=== PATIENT | female | born 1960 | race Caucasian/White ===

== ENCOUNTER 2017-12-06 19:33 | Emergency (ER) | payer OTHER ==
[~2017-12-06] VITALS: Ht 157.5 cm; Wt 45.4 kg
[~2017-12-06 19:33] MED LIST: Cyclobenzaprine5 MG PO; Motrin800 MG PO; OXYACE5T PO; PROM25 PO; RXOXYACE PO
[2017-12-06 20:00] LABS: BASOPHILS ABSOLUTE AUTO 0.04 K/mm3 (0.00-0.23); BASOPHILS PERCENT AUTO 1 % (0-2); EOSINOPHILS PERCENT AUTO 0 % (0-6); Hemoglobin 15.6 g/dL (11.5-16.0); IMMATURE GRAN ABSOLUTE AUTO 0.01 K/mm3 (0.00-0.10); IMMATURE GRAN PERCENT AUTO 0 % (0-1); LYMPHOCYTES ABSOLUTE AUTO 1.92 K/mm3 (0.84-5.20); LYMPHOCYTES PERCENT AUTO 29 % (21-46); MONOCYTES ABSOLUTE AUTO 1.06 K/mm3 (0.16-1.47); MONOCYTES PERCENT AUTO 16 % (4-13); Mean Corpuscular HGB Conc 33.9 g/dL (31.5-36.5); Mean Corpuscular Volume 91 fL (80-100); Mean Platelet Volume 11.4 fL (9.1-12.4); NEUTROPHILS ABSOLUTE AUTO 3.63 K/mm3 (1.96-9.15); NEUTROPHILS PERCENT AUTO 55 % (41-73); Platelet Count 80 K/mm3 (150-400); RDW Coefficient Variation 12.6 % (11.7-14.2); RDW Standard Deviation 42.2 fL (35.1-46.3); Red Blood Cell Count 5.04 M/mm3 (3.80-5.20); White Blood Cell Count 6.66 K/mm3 (4.00-11.30)
[2017-12-06 20:07] LABS: Influenza A Negative (NEGATIVE); Influenza B Positive (NEGATIVE)
[2017-12-06] MEDS ORDERED: CONEST.9 PO (20:09)
[2017-12-06 20:22] LABS: Alanine Aminotransfer (ALT/SGP 22 U/L (12-78); Albumin, Blood 3.8 g/dL (3.4-5.0); Albumin/Globulin Ratio 1.1 (0.8-1.8); Alk Phos 58 U/L (50-136); Anion Gap 11 mmol/L (6-16); Aspartate Aminotrans (AST/SGOT 38 U/L (12-37); Bilirubin, Total 0.4 mg/dL (0.1-1.0); Blood Urea Nitrogen 12 mg/dL (8-24); CO2, Blood 25 mmol/L (21-32); Calcium, Blood 8.9 mg/dL (8.5-10.1); Chloride, Blood 96 mmol/L (98-108); Creatinine, Blood 0.86 mg/dL (0.40-1.00); Globulin, Blood 3.5 g/dL (2.2-4.0); Glomerular Filtration Rate >60 (60-); Glucose, Blood 94 mg/dL (70-99); Potassium, Blood 3.7 mmol/L (3.5-5.5); Sodium, Blood 132 mmol/L (136-145); Total Protein, Blood 7.3 g/dL (6.4-8.2); Troponin I <0.015 ng/mL (0.000-0.040)
== END 2017-12-06 22:14 | disposition home or self-care (01) ==
LOC: ER 19:33
PROVIDERS: Emergency Medicine
DX: J10.1 Influenza due to other identified influenza virus with other respiratory manifestations (principal); R55 Syncope and collapse; F17.200 Nicotine dependence, unspecified, uncomplicated; Z79.899 Other long term (current) drug therapy; Z90.710 Acquired absence of both cervix and uterus; Z90.89 Acquired absence of other organs
CPT/HCPCS: 71046; 80053; 84484; 85025; 87804; 93005; 93010; 96361; 96374; 99283; J2405; J7030

== ENCOUNTER 2019-02-02 10:44 | Day surgery (SDC) | payer OTHER ==
[~2019-02-02 10:44] MED LIST changes: +CONEST.9 PO
--- NOTE | 2019-02-02 11:29 | NUR ---
02/02/19 1129 Taran Ribera History, Chart, Medications and Allergies reviewed before start of procedure.MONITOR INTACT WITH CONTINUOUS PULSE OXIMETRY AND INTERMITTENT BP.3-LEAD EKG REVIEWED WITH PHYSICIAN PRIOR TO START OF PROCEDURE.O2 VIA N/C INTACT THROUGHOUT SEDATION/PROCEDURE. Patient confirms NPO status and agrees with scheduled surgery.PATIENT DETERMINED TO BE ASA APPROPRIATE FOR PROPOFOL SEDATION PRIOR TO START OF PROCEDURE BY DR. GREER.
--- NOTE | 2019-02-02 14:37 | NUR ---
Discharge instructions reviewed with patient. Patient verbalizes understanding. Copy given to patient to take home. PATINET ABLE TO SM\WALLOW, GAG REFLEX INTACT. NO SOB OR DIS\FFICULTY BREATHING. Discharged via wheelchair to private car for ride home.
== END 2019-02-02 14:30 | disposition home or self-care (01) ==
LOC: ORSCMMR 10:44 → ORD 11:30 → ORSCMMR 14:30
PROVIDERS: Internal Medicine Critical Care Medicine
PROC: 0BB68ZX Excision of Right Lower Lobe Bronchus, Via Natural or Artificial Opening Endoscopic, Diagnostic (ICD-10-PCS; principal; 2019-02-02 11:30)
DX: R91.8 Other nonspecific abnormal finding of lung field (principal); C34.00 Malignant neoplasm of unspecified main bronchus; F17.210 Nicotine dependence, cigarettes, uncomplicated; R04.2 Hemoptysis; R06.02 Shortness of breath; J43.9 Emphysema, unspecified
CPT/HCPCS: 88305; J2250; J7120

== ENCOUNTER → 2019-04-02 | Outpatient (CLI) | payer OTHER ==
[2019-04-02 17:17] LABS: BASOPHILS ABSOLUTE AUTO 0.06 K/mm3 (0.00-0.23); BASOPHILS PERCENT AUTO 1 % (0-2); EOSINOPHILS ABSOLUTE AUTO 0.21 K/mm3 (0.00-0.68); EOSINOPHILS PERCENT AUTO 3 % (0-6); Hematocrit 43.8 % (33.0-51.0); Hemoglobin 14.8 g/dL (11.5-16.0); IMMATURE GRAN ABSOLUTE AUTO 0.01 K/mm3 (0.00-0.10); IMMATURE GRAN PERCENT AUTO 0 % (0-1); LYMPHOCYTES ABSOLUTE AUTO 2.29 K/mm3 (0.84-5.20); LYMPHOCYTES PERCENT AUTO 33 % (21-46); MONOCYTES ABSOLUTE AUTO 0.77 K/mm3 (0.16-1.47); MONOCYTES PERCENT AUTO 11 % (4-13); Mean Corpuscular HGB 32.1 pg (26.0-34.0); Mean Corpuscular HGB Conc 33.8 g/dL (31.5-36.5); Mean Corpuscular Volume 95 fL (80-100); Mean Platelet Volume 10.3 fL (9.1-12.4); NEUTROPHILS ABSOLUTE AUTO 3.52 K/mm3 (1.96-9.15); NEUTROPHILS PERCENT AUTO 51 % (41-73); Platelet Count 209 K/mm3 (150-400); RDW Coefficient Variation 12.8 % (11.7-14.2); RDW Standard Deviation 44.9 fL (35.1-46.3); Red Blood Cell Count 4.61 M/mm3 (3.80-5.20); White Blood Cell Count 6.86 K/mm3 (4.00-11.30)
[2019-04-02 17:26] LABS: Alanine Aminotransfer (ALT/SGP 18 U/L (12-78); Albumin, Blood 3.8 g/dL (3.4-5.0); Albumin/Globulin Ratio 1.1 (0.8-1.8); Alk Phos 80 U/L (40-126); Anion Gap 5 mmol/L (6-16); Aspartate Aminotrans (AST/SGOT 20 U/L (12-37); Bilirubin, Total 0.4 mg/dL (0.1-1.0); Blood Urea Nitrogen 10 mg/dL (8-24); Bun/Creatinine Ratio 12.7 (12.0-20.0); CO2, Blood 31 mmol/L (21-32); CPK Creatine Kinase 93 U/L (26-192); Calcium, Blood 9.4 mg/dL (8.5-10.1); Chloride, Blood 103 mmol/L (98-108); Creatinine, Blood 0.79 mg/dL (0.40-1.00); Globulin, Blood 3.5 g/dL (2.2-4.0); Glomerular Filtration Rate >60 (60-); Glucose, Blood 83 mg/dL (70-99); Magnesium, Blood 2.1 mg/dL (1.6-2.4); Potassium, Blood 3.8 mmol/L (3.5-5.5); Sodium, Blood 139 mmol/L (136-145); Total Protein, Blood 7.3 g/dL (6.4-8.2)
== END | disposition home or self-care (01) ==
LOC: LAB EV 17:07 → LAB SHORT 17:07
PROVIDERS: Internal Medicine
DX: R25.2 Cramp and spasm (principal)
CPT/HCPCS: 80053; 82550; 83735; 85025

== ENCOUNTER 2019-04-15 08:11 | Day surgery (SDC) | payer OTHER ==
[~2019-04-15] VITALS: Ht 157.5 cm; Wt 44.3 kg
[~2019-04-15 08:11] MED LIST changes: +ALBU90OI; +ANORO ELLIPTA1 EACH INH; +DIAZ5 PO; +ESTMED PO
--- NOTE | 2019-04-15 08:43 | NUR ---
History, Chart, Medications and Allergies reviewed before start of procedure. Patient confirms NPO status and agrees with scheduled surgery. Lungs clear T/O to Auscultation. Patient reports completing Chlorhexadine shower X2 prior to admission to hospital. Pre-Op teaching done. Pt verbalizes understanding. Patient States Post-Procedure ride home has been arranged.
--- NOTE | 2019-04-15 09:47 | NUR ---
CHILD & ADOLESCENT PSYCHIATRIST REPORT AT BEDSIDE WITH SHAMA SHEPHERD RN.
--- NOTE | 2019-04-15 10:55 | NUR ---
1055- MEDIPORT PLACEMENT GOOD PER DR. KELLEY
--- NOTE | 2019-04-15 12:09 | NUR ---
Discharge instructions reviewed with patient. Patient verbalizes understanding. Copy given to patient to take home. DRG C/D/I R CHEST. TOLERATED PO WELL. Discharged via wheelchair to private car for ride home.
== END 2019-04-15 23:16 | disposition home or self-care (01) ==
LOC: ORSCMMR 08:11 → ORD 09:30 → ORSCMMR 09:30
PROVIDERS: Surgery
PROC: 05H533Z Insertion of Infusion Device into Right Subclavian Vein, Percutaneous Approach (ICD-10-PCS; principal; 2019-04-15 09:30)
PROC: B5161ZA Fluoroscopy of Right Subclavian Vein using Low Osmolar Contrast, Guidance (ICD-10-PCS; principal; 2019-04-15 09:30)
DX: C34.90 Malignant neoplasm of unspecified part of unspecified bronchus or lung (principal); J44.9 Chronic obstructive pulmonary disease, unspecified; F17.210 Nicotine dependence, cigarettes, uncomplicated; Z79.899 Other long term (current) drug therapy
CPT/HCPCS: 77001; A9270-GY; C1788; J0690; J1642; J2250; J2704; J3010; J7120

== ENCOUNTER → 2019-05-24 | Outpatient (CLI) | payer OTHER ==
[2019-05-24 12:03] LABS: BASOPHILS ABSOLUTE AUTO 0.08 K/mm3 (0.00-0.23); BASOPHILS PERCENT AUTO 1 % (0-2); EOSINOPHILS ABSOLUTE AUTO 0.03 K/mm3 (0.00-0.68); EOSINOPHILS PERCENT AUTO 1 % (0-6); Hematocrit 38.6 % (33.0-51.0); Hemoglobin 12.8 g/dL (11.5-16.0); IMMATURE GRAN ABSOLUTE AUTO 0.08 K/mm3 (0.00-0.10); IMMATURE GRAN PERCENT AUTO 1 % (0-1); LYMPHOCYTES ABSOLUTE AUTO 0.62 K/mm3 (0.84-5.20); LYMPHOCYTES PERCENT AUTO 11 % (21-46); MONOCYTES PERCENT AUTO 3 % (4-13); Mean Corpuscular HGB 31.4 pg (26.0-34.0); Mean Corpuscular HGB Conc 33.2 g/dL (31.5-36.5); Mean Corpuscular Volume 95 fL (80-100); NEUTROPHILS ABSOLUTE AUTO 4.83 K/mm3 (1.96-9.15); NEUTROPHILS PERCENT AUTO 83 % (41-73); Platelet Count 148 K/mm3 (150-400); RDW Coefficient Variation 12.5 % (11.7-14.2); RDW Standard Deviation 43.2 fL (35.1-46.3); Red Blood Cell Count 4.08 M/mm3 (3.80-5.20); White Blood Cell Count 5.84 K/mm3 (4.00-11.30)
[2019-05-24 12:14] LABS: Alanine Aminotransfer (ALT/SGP 16 U/L (12-78); Albumin, Blood 3.8 g/dL (3.4-5.0); Albumin/Globulin Ratio 1.2 (0.8-1.8); Alk Phos 79 U/L (50-136); Anion Gap 6 mmol/L (6-16); Aspartate Aminotrans (AST/SGOT 15 U/L (12-37); Bilirubin, Total 0.4 mg/dL (0.1-1.0); Blood Urea Nitrogen 8 mg/dL (8-24); Bun/Creatinine Ratio 13.4 (12.0-20.0); CO2, Blood 27 mmol/L (21-32); Calcium, Blood 9.6 mg/dL (8.5-10.1); Chloride, Blood 104 mmol/L (98-108); Globulin, Blood 3.3 g/dL (2.2-4.0); Glomerular Filtration Rate >60 (60-); Glucose, Blood 85 mg/dL (70-99); Potassium, Blood 4.1 mmol/L (3.5-5.5); Sodium, Blood 137 mmol/L (136-145); Total Protein, Blood 7.1 g/dL (6.4-8.2)
== END | disposition home or self-care (01) ==
LOC: LAB 11:23 → LAB SHORT 11:23
PROVIDERS: Registered Nurse Oncology
DX: C34.90 Malignant neoplasm of unspecified part of unspecified bronchus or lung (principal)
CPT/HCPCS: 80053; 85025

== ENCOUNTER → 2020-03-28 | Outpatient (CLI) | payer OTHER ==
[~2020-03-28] MED LIST changes: +IMFINZI500 MG/10 IV
== END | disposition home or self-care (01) ==
LOC: LAB 13:30 → LAB SHORT 13:30
DX: C34.90 Malignant neoplasm of unspecified part of unspecified bronchus or lung (principal); R06.00 Dyspnea, unspecified; R05 Cough
CPT/HCPCS: 85379

== ENCOUNTER 2020-05-06 16:45 | Emergency (ER) | payer OTHER ==
[~2020-05-06] VITALS: Ht 157.5 cm; Wt 41.7 kg
[2020-05-06] MEDS ORDERED: ALPRAZOLAM0.5 M1 PO (17:47)
[2020-05-06 17:50] LABS: BASOPHILS ABSOLUTE AUTO 0.05 K/mm3 (0.00-0.23); BASOPHILS PERCENT AUTO 1 % (0-2); EOSINOPHILS ABSOLUTE AUTO 0.12 K/mm3 (0.00-0.68); EOSINOPHILS PERCENT AUTO 2 % (0-6); Hematocrit 43.7 % (33.0-51.0); Hemoglobin 14.6 g/dL (11.5-16.0); IMMATURE GRAN ABSOLUTE AUTO 0.01 K/mm3 (0.00-0.10); IMMATURE GRAN PERCENT AUTO 0 % (0-1); LYMPHOCYTES ABSOLUTE AUTO 1.06 K/mm3 (0.84-5.20); LYMPHOCYTES PERCENT AUTO 14 % (21-46); MONOCYTES ABSOLUTE AUTO 0.88 K/mm3 (0.16-1.47); MONOCYTES PERCENT AUTO 11 % (4-13); Mean Corpuscular HGB Conc 33.4 g/dL (31.5-36.5); Mean Corpuscular Volume 96 fL (80-100); Mean Platelet Volume 9.3 fL (9.1-12.4); NEUTROPHILS ABSOLUTE AUTO 5.72 K/mm3 (1.96-9.15); NEUTROPHILS PERCENT AUTO 73 % (41-73); Platelet Count 212 K/mm3 (150-400); RDW Coefficient Variation 12.3 % (11.7-14.2); RDW Standard Deviation 43.7 fL (35.1-46.3); Red Blood Cell Count 4.56 M/mm3 (3.80-5.20); White Blood Cell Count 7.84 K/mm3 (4.00-11.30)
[2020-05-06 18:06] LABS: Alanine Aminotransfer (ALT/SGP 16 U/L (12-78); Albumin, Blood 3.9 g/dL (3.4-5.0); Alk Phos 76 U/L (50-136); Anion Gap 8 mmol/L (6-16); Aspartate Aminotrans (AST/SGOT 23 U/L (12-37); Bilirubin, Total 0.4 mg/dL (0.1-1.0); Blood Urea Nitrogen 8 mg/dL (8-24); Bun/Creatinine Ratio 12.8 (12.0-20.0); CO2, Blood 25 mmol/L (21-32); Calcium, Blood 9.4 mg/dL (8.5-10.1); Chloride, Blood 98 mmol/L (98-108); Creatinine, Blood 0.63 mg/dL (0.40-1.00); Globulin, Blood 3.8 g/dL (2.2-4.0); Glomerular Filtration Rate >60 (60-); Glucose, Blood 100 mg/dL (70-99); Potassium, Blood 3.7 mmol/L (3.5-5.5); Sodium, Blood 131 mmol/L (136-145); Total Protein, Blood 7.7 g/dL (6.4-8.2)
== END 2020-05-06 21:35 | disposition home or self-care (01) ==
LOC: ER 16:45
PROVIDERS: Student in an Organized Health Care Education/Training Program
DX: R07.9 Chest pain, unspecified (principal); I25.2 Old myocardial infarction; F41.9 Anxiety disorder, unspecified; Z86.73 Personal history of transient ischemic attack (TIA), and cerebral infarction without residual deficits; F17.200 Nicotine dependence, unspecified, uncomplicated; Z85.118 Personal history of other malignant neoplasm of bronchus and lung; Z79.899 Other long term (current) drug therapy
CPT/HCPCS: 71046; 71260; 80053; 83690; 85025; 93005; 93010; 96374; 99285-25; J1885; Q9967

== ENCOUNTER 2021-10-22 15:41 | Emergency (ER) | payer MEDICARE, OTHER ==
[~2021-10-22] VITALS: Ht 157.5 cm; Wt 45.4 kg
[~2021-10-22 15:41] MED LIST changes: +ALPRAZOLAM0.5 M1 PO
[2021-10-22 16:29] LABS: BASOPHILS ABSOLUTE AUTO 0.06 K/mm3 (0.00-0.23); BASOPHILS PERCENT AUTO 2 % (0-2); EOSINOPHILS ABSOLUTE AUTO 0.06 K/mm3 (0.00-0.68); EOSINOPHILS PERCENT AUTO 2 % (0-6); Hematocrit 36.5 % (33.0-51.0); Hemoglobin 12.1 g/dL (11.5-16.0); IMMATURE GRAN ABSOLUTE AUTO 0.02 K/mm3 (0.00-0.10); IMMATURE GRAN PERCENT AUTO 1 % (0-1); LYMPHOCYTES ABSOLUTE AUTO 0.85 K/mm3 (0.84-5.20); LYMPHOCYTES PERCENT AUTO 25 % (21-46); MONOCYTES ABSOLUTE AUTO 0.31 K/mm3 (0.16-1.47); MONOCYTES PERCENT AUTO 9 % (4-13); Mean Corpuscular HGB 31.5 pg (26.0-34.0); Mean Corpuscular HGB Conc 33.2 g/dL (31.5-36.5); Mean Corpuscular Volume 95 fL (80-100); Mean Platelet Volume 10.1 fL (9.1-12.4); NEUTROPHILS ABSOLUTE AUTO 2.16 K/mm3 (1.96-9.15); NEUTROPHILS PERCENT AUTO 62 % (41-73); Platelet Count 53 K/mm3 (150-400); RDW Coefficient Variation 14.3 % (11.7-14.2); RDW Standard Deviation 49.9 fL (35.1-46.3); Red Blood Cell Count 3.84 M/mm3 (3.80-5.20); White Blood Cell Count 3.46 K/mm3 (4.00-11.30)
[2021-10-22 17:33] LABS: Alanine Aminotransfer (ALT/SGP 7 U/L (12-78); Albumin, Blood 2.5 g/dL (3.4-5.0); Albumin/Globulin Ratio 0.8 (0.8-1.8); Alk Phos 67 U/L (50-136); Anion Gap 9 mmol/L (6-16); Aspartate Aminotrans (AST/SGOT 14 U/L (12-37); Bilirubin, Total 0.5 mg/dL (0.1-1.0); Blood Urea Nitrogen 13 mg/dL (8-24); Bun/Creatinine Ratio 18.6 (12.0-20.0); CO2, Blood 27 mmol/L (21-32); Calcium, Blood 9.1 mg/dL (8.5-10.1); Chloride, Blood 100 mmol/L (98-108); Globulin, Blood 3.2 g/dL (2.2-4.0); Glomerular Filtration Rate >60 (60-); Glucose, Blood 124 mg/dL (70-99); Potassium, Blood 4.2 mmol/L (3.5-5.5); Sodium, Blood 136 mmol/L (136-145); Total Protein, Blood 5.7 g/dL (6.4-8.2)
[2021-10-22 20:22] LABS: Source, Urine Voided
[2021-10-22 20:27] LABS: Bilirubin, Urine Neg (Neg); Blood, Urine 3+ (Neg); Glucose Qualitative, Urine Neg (Neg); Ketones, Urine Neg (Neg); Leukocyte Esterase, Urine 1+ (Neg); Nitrite, Urine Neg (Neg); Protein, Urine 2+ (Neg); Urobilinogen, Urine NORM (Normal)
[2021-10-22 20:33] LABS: Appearance, Urine Clear (Clear); Color, Urine Yellow (P-Yellow)
[2021-10-22 20:35] LABS: Amorphous Light (0-Heavy); Bacteria Few /hpf; Red Blood Cells, Urine 0-2 /hpf (0-2); Squamous Epithelial Cells Few /hpf (Few)
[2021-10-22] MEDS ORDERED: Lasix20 MG PO (20:48)
== END 2021-10-23 22:17 | disposition home or self-care (01) ==
LOC: ER 15:41
PROVIDERS: Emergency Medicine; Physician Assistant
DX: R60.0 Localized edema (principal); Z79.899 Other long term (current) drug therapy; F17.200 Nicotine dependence, unspecified, uncomplicated
CPT/HCPCS: 36415; 71045; 80053; 81001; 83880; 85025; 93005; 93010; 93970; 99284-25

== ENCOUNTER 2021-10-30 15:02 | Day surgery (SDC) | payer MEDICARE, OTHER ==
[2021-10-30 12:27] LABS: Hematocrit 28.9 % (33.0-51.0); Hemoglobin 9.7 g/dL (11.5-16.0); Mean Corpuscular HGB Conc 33.6 g/dL (31.5-36.5); Mean Corpuscular Volume 95 fL (80-100); RDW Coefficient Variation 14.5 % (11.7-14.2); RDW Standard Deviation 49.7 fL (35.1-46.3); Red Blood Cell Count 3.03 M/mm3 (3.80-5.20); White Blood Cell Count 3.18 K/mm3 (4.00-11.30)
[2021-10-30 12:38] LABS: Platelet Count 13 K/mm3 (150-400)
[2021-10-30 12:52] LABS: BAND PERCENT MAN 2 % (0-8); BASOPHILS PERCENT MAN 0 % (0-2); EOSINOPHILS PERCENT MAN 0 % (0-6); LYMPHOCYTES ABSOLUTE MAN 0.38 K/mm3 (0.84-5.20); LYMPHOCYTES PERCENT MAN 12 % (21-46); MONOCYTES ABSOLUTE MAN 0.06 K/mm3 (0.16-1.47); MONOCYTES PERCENT MAN 2 % (4-13); NEUTROPHILS ABSOLUTE MAN 2.73 K/mm3 (1.96-9.15); SEG NEUTROPHILS PERCENT MAN 84 % (41-73); TOTAL CELLS COUNTED 100
[2021-10-30 13:13] LABS: Alanine Aminotransfer (ALT/SGP 20 U/L (12-78); Albumin, Blood 2.1 g/dL (3.4-5.0); Albumin/Globulin Ratio 0.5 (0.8-1.8); Alk Phos 72 U/L (50-136); Anion Gap 6 mmol/L (6-16); Aspartate Aminotrans (AST/SGOT 27 U/L (12-37); Bilirubin, Total 0.5 mg/dL (0.1-1.0); Blood Urea Nitrogen 18 mg/dL (8-24); Bun/Creatinine Ratio 25.5 (12.0-20.0); CO2, Blood 31 mmol/L (21-32); Calcium, Blood 9.5 mg/dL (8.5-10.1); Chloride, Blood 96 mmol/L (98-108); Creatinine, Blood 0.71 mg/dL (0.40-1.00); Globulin, Blood 3.9 g/dL (2.2-4.0); Glomerular Filtration Rate >60 (60-); Glucose, Blood 88 mg/dL (70-99); Potassium, Blood 4.5 mmol/L (3.5-5.5); Sodium, Blood 133 mmol/L (136-145)
[~2021-10-30 15:02] MED LIST changes: +Lasix20 MG PO
== END 2021-10-30 17:25 | disposition home or self-care (01) ==
LOC: ATC 15:02 → LAB FUT 10-08 17:05 → EDSTATUS 10-08 17:05
PROVIDERS: Internal Medicine Hematology & Oncology
DX: C34.31 Malignant neoplasm of lower lobe, right bronchus or lung (principal); Z87.891 Personal history of nicotine dependence
CPT/HCPCS: 36415; 80053; 85025; 86900; 86901; J1642; J7050; P9035

== ENCOUNTER → 2021-12-04 | Outpatient (CLI) | payer MEDICARE, OTHER ==
[2021-12-04 15:40] LABS: BASOPHILS ABSOLUTE AUTO 0.05 K/mm3 (0.00-0.23); BASOPHILS PERCENT AUTO 1 % (0-2); EOSINOPHILS ABSOLUTE AUTO 0.14 K/mm3 (0.00-0.68); EOSINOPHILS PERCENT AUTO 3 % (0-6); Hematocrit 32.3 % (33.0-51.0); Hemoglobin 10.4 g/dL (11.5-16.0); IMMATURE GRAN ABSOLUTE AUTO 0.01 K/mm3 (0.00-0.10); IMMATURE GRAN PERCENT AUTO 0 % (0-1); LYMPHOCYTES ABSOLUTE AUTO 0.61 K/mm3 (0.84-5.20); LYMPHOCYTES PERCENT AUTO 14 % (21-46); MONOCYTES ABSOLUTE AUTO 0.84 K/mm3 (0.16-1.47); MONOCYTES PERCENT AUTO 19 % (4-13); Mean Corpuscular HGB 32.3 pg (26.0-34.0); Mean Corpuscular HGB Conc 32.2 g/dL (31.5-36.5); Mean Corpuscular Volume 100 fL (80-100); Mean Platelet Volume 10.1 fL (9.1-12.4); NEUTROPHILS ABSOLUTE AUTO 2.82 K/mm3 (1.96-9.15); NEUTROPHILS PERCENT AUTO 63 % (41-73); Platelet Count 358 K/mm3 (150-400); RDW Coefficient Variation 19.7 % (11.7-14.2); Red Blood Cell Count 3.22 M/mm3 (3.80-5.20); White Blood Cell Count 4.47 K/mm3 (4.00-11.30)
[2021-12-04 16:00] LABS: Alanine Aminotransfer (ALT/SGP 18 U/L (12-78); Albumin, Blood 2.8 g/dL (3.4-5.0); Albumin/Globulin Ratio 0.8 (0.8-1.8); Alk Phos 79 U/L (50-136); Anion Gap 6 mmol/L (6-16); Aspartate Aminotrans (AST/SGOT 27 U/L (12-37); Bilirubin, Total 0.3 mg/dL (0.1-1.0); Blood Urea Nitrogen 11 mg/dL (8-24); Bun/Creatinine Ratio 16.3 (12.0-20.0); CO2, Blood 29 mmol/L (21-32); Chloride, Blood 102 mmol/L (98-108); Creatinine, Blood 0.67 mg/dL (0.40-1.00); Globulin, Blood 3.3 g/dL (2.2-4.0); Glomerular Filtration Rate >60 (60-); Glucose, Blood 136 mg/dL (70-99); Potassium, Blood 3.9 mmol/L (3.5-5.5); Sodium, Blood 137 mmol/L (136-145); Total Protein, Blood 6.1 g/dL (6.4-8.2)
== END | disposition home or self-care (01) ==
LOC: LAB SHORT 14:00
PROVIDERS: Internal Medicine Hematology & Oncology
DX: C34.90 Malignant neoplasm of unspecified part of unspecified bronchus or lung (principal)
CPT/HCPCS: 80053; 85025

== ENCOUNTER → 2021-12-11 | Outpatient (CLI) | payer MEDICARE, OTHER ==
[2021-12-12 08:11] LABS: BASO (ABSOLUTE) 0.1 x10E3/uL (0.0-0.2); BASOS 3 % (Not Estab.); EOS 8 % (Not Estab.); EOS (ABSOLUTE) 0.2 x10E3/uL (0.0-0.4); HEMATOCRIT 31.2 % (34.0-46.6); HEMOGLOBIN 10.3 g/dL (11.1-15.9); IMMATURE GRANULOCYTES 1 % (Not Estab.); LYMPHS 23 % (Not Estab.); LYMPHS (ABSOLUTE) 0.5 x10E3/uL (0.7-3.1); MCH 31.7 pg (26.6-33.0); MCV 96 fL (79-97); MONOCYTES 9 % (Not Estab.); MONOCYTES(ABSOLUTE) 0.2 x10E3/uL (0.1-0.9); NEUTROPHILS 56 % (Not Estab.); NEUTROPHILS (ABSOLUTE) 1.2 x10E3/uL (1.4-7.0); PLATELETS 347 x10E3/uL (150-450); RBC 3.25 x10E6/uL (3.77-5.28); RDW 17.6 % (11.7-15.4)
[2021-12-12 09:11] LABS: A/G RATIO 1.5 (1.2-2.2); BILIRUBIN, TOTAL 0.2 mg/dL (0.0-1.2); CALCIUM, SERUM 9.3 mg/dL (8.7-10.3); CREATININE, SERUM 0.55 mg/dL (0.57-1.00); GLOBULIN, TOTAL 2.3 g/dL (1.5-4.5); POTASSIUM, SERUM 4.6 mmol/L (3.5-5.2); PROTEIN, TOTAL, SERUM 5.8 g/dL (6.0-8.5)
== END ==
LOC: LAB SHORT 13:50 → LAB 13:50
PROVIDERS: Hospitalist
DX: R60.0 Localized edema (principal)
CPT/HCPCS: 80053; 85025

== ENCOUNTER 2022-01-12 15:09 | Emergency (ER) | payer MEDICARE, OTHER ==
[~2022-01-12] VITALS: Ht 157.5 cm; Wt 44.0 kg
[2022-01-12] MEDS ORDERED: K-Dur10 MEQ (15:34)
[2022-01-12] MEDS ORDERED: ATENOLOL25 MG PO (15:35)
[2022-01-12 15:47] LABS: BASOPHILS ABSOLUTE AUTO 0.02 K/mm3 (0.00-0.23); BASOPHILS PERCENT AUTO 0 % (0-2); EOSINOPHILS ABSOLUTE AUTO 0.07 K/mm3 (0.00-0.68); EOSINOPHILS PERCENT AUTO 1 % (0-6); Hematocrit 39.8 % (33.0-51.0); Hemoglobin 12.8 g/dL (11.5-16.0); IMMATURE GRAN ABSOLUTE AUTO 0.04 K/mm3 (0.00-0.10); IMMATURE GRAN PERCENT AUTO 1 % (0-1); LYMPHOCYTES ABSOLUTE AUTO 0.59 K/mm3 (0.84-5.20); LYMPHOCYTES PERCENT AUTO 8 % (21-46); MONOCYTES ABSOLUTE AUTO 1.39 K/mm3 (0.16-1.47); MONOCYTES PERCENT AUTO 18 % (4-13); Mean Corpuscular HGB 32.7 pg (26.0-34.0); Mean Corpuscular HGB Conc 32.2 g/dL (31.5-36.5); Mean Corpuscular Volume 102 fL (80-100); Mean Platelet Volume 9.2 fL (9.1-12.4); NEUTROPHILS ABSOLUTE AUTO 5.58 K/mm3 (1.96-9.15); NEUTROPHILS PERCENT AUTO 73 % (41-73); NRBC ABSOLUTE 0.02 K/mm3 (0.00-0.02); NRBC Auto 0.3 /100 WBC (0.0-0.2); Platelet Count 95 K/mm3 (150-400); RDW Coefficient Variation 20.6 % (11.7-14.2); Red Blood Cell Count 3.92 M/mm3 (3.80-5.20); White Blood Cell Count 7.69 K/mm3 (4.00-11.30)
[2022-01-12 16:08] LABS: Alanine Aminotransfer (ALT/SGP 26 U/L (12-78); Albumin, Blood 3.1 g/dL (3.4-5.0); Albumin/Globulin Ratio 0.7 (0.8-1.8); Alk Phos 103 U/L (50-136); Anion Gap 6 mmol/L (6-16); Aspartate Aminotrans (AST/SGOT 29 U/L (12-37); Bilirubin, Total 0.5 mg/dL (0.1-1.0); Blood Urea Nitrogen 12 mg/dL (8-24); Bun/Creatinine Ratio 18.2 (12.0-20.0); CO2, Blood 29 mmol/L (21-32); Calcium, Blood 9.9 mg/dL (8.5-10.1); Chloride, Blood 102 mmol/L (98-108); Creatinine, Blood 0.66 mg/dL (0.40-1.00); Globulin, Blood 4.3 g/dL (2.2-4.0); Glomerular Filtration Rate >60 (60-); Glucose, Blood 105 mg/dL (70-99); Potassium, Blood 3.7 mmol/L (3.5-5.5); Sodium, Blood 137 mmol/L (136-145); Total Protein, Blood 7.4 g/dL (6.4-8.2)
[2022-01-12] MEDS ORDERED: AMOCLA875 PO (16:37)
[2022-01-12 16:53] LABS: Influenza A, PCR NEGATIVE (NEGATIVE); Influenza B, PCR NEGATIVE (NEGATIVE); Resp Syncytial Virus, PCR NEGATIVE (NEGATIVE); SARS-Cov-2 (COVID-19) PCR, MMC NEGATIVE (NEGATIVE)
== END 2022-01-12 22:45 | disposition home or self-care (01) ==
LOC: ER 15:09
PROVIDERS: Emergency Medicine; Physician Assistant
DX: J01.90 Acute sinusitis, unspecified (principal); R09.02 Hypoxemia; C34.91 Malignant neoplasm of unspecified part of right bronchus or lung; I25.2 Old myocardial infarction; F17.200 Nicotine dependence, unspecified, uncomplicated; Z20.822 Contact with and (suspected) exposure to COVID-19; Z85.118 Personal history of other malignant neoplasm of bronchus and lung; Z79.899 Other long term (current) drug therapy
CPT/HCPCS: 0241U; 36415; 71045; 71260; 80053; 85025; 93005; 93010; 96374; 99285-25; A9270; J1642; Q9967

== ENCOUNTER 2022-04-13 17:40 | Emergency (ER) | payer MEDICARE, OTHER ==
[~2022-04-13] VITALS: Ht 157.5 cm; Wt 44.9 kg
[~2022-04-13 17:40] MED LIST changes: +AMOCLA875 PO; +ATENOLOL25 MG PO; +K-Dur10 MEQ
[2022-04-13] MEDS ORDERED: ESTRADIOL1 M1 PO (19:41)
[2022-04-13] MEDS ORDERED: ANORO ELLIPTA1 EAC1 IH (19:42)
[2022-04-13] MEDS ORDERED: DILTIAZEM 24HR240 M5 PO (19:42)
[2022-04-13 19:43] LABS: BASOPHILS ABSOLUTE AUTO 0.06 K/mm3 (0.00-0.23); BASOPHILS PERCENT AUTO 2 % (0-2); EOSINOPHILS ABSOLUTE AUTO 0.07 K/mm3 (0.00-0.68); EOSINOPHILS PERCENT AUTO 2 % (0-6); Hemoglobin 11.5 g/dL (11.5-16.0); IMMATURE GRAN PERCENT AUTO 0 % (0-1); LYMPHOCYTES ABSOLUTE AUTO 0.77 K/mm3 (0.84-5.20); LYMPHOCYTES PERCENT AUTO 23 % (21-46); MONOCYTES ABSOLUTE AUTO 0.12 K/mm3 (0.16-1.47); MONOCYTES PERCENT AUTO 4 % (4-13); Mean Corpuscular HGB 29.3 pg (26.0-34.0); Mean Corpuscular HGB Conc 31.9 g/dL (31.5-36.5); Mean Corpuscular Volume 92 fL (80-100); Mean Platelet Volume 10.5 fL (9.1-12.4); NEUTROPHILS ABSOLUTE AUTO 2.38 K/mm3 (1.96-9.15); NEUTROPHILS PERCENT AUTO 70 % (41-73); Platelet Count 224 K/mm3 (150-400); RDW Coefficient Variation 15.3 % (11.7-14.2); RDW Standard Deviation 51.7 fL (35.1-46.3); Red Blood Cell Count 3.93 M/mm3 (3.80-5.20)
[2022-04-13 20:00] LABS: Albumin, Blood 3.5 g/dL (3.4-5.0); Bilirubin, Total 0.3 mg/dL (0.1-1.0); Bun/Creatinine Ratio 24.5 (12.0-20.0); Calcium, Blood 9.3 mg/dL (8.5-10.1); Creatinine, Blood 0.61 mg/dL (0.40-1.00); Globulin, Blood 3.6 g/dL (2.2-4.0); Potassium, Blood 3.9 mmol/L (3.5-5.5); Total Protein, Blood 7.1 g/dL (6.4-8.2)
[2022-04-13 20:34] LABS: Influenza A Negative (NEGATIVE); Influenza B Negative (NEGATIVE)
[2022-04-13 20:53] LABS: SARS-Cov-2 (COVID-19) PCR, MMC NEGATIVE (NEGATIVE)
== END 2022-04-13 22:05 | disposition home or self-care (01) ==
LOC: ER 17:40
PROVIDERS: Physician Assistant
DX: J02.9 Acute pharyngitis, unspecified (principal); C34.90 Malignant neoplasm of unspecified part of unspecified bronchus or lung; Z20.822 Contact with and (suspected) exposure to COVID-19; Z87.891 Personal history of nicotine dependence; Z79.899 Other long term (current) drug therapy
CPT/HCPCS: 71045; 80053; 84484; 85025; 87804; 93005; 93010; J1642; U0004

== ENCOUNTER 2022-05-01 20:05 | Emergency (ER) | payer MEDICARE, OTHER ==
[~2022-05-01] VITALS: Ht 157.5 cm; Wt 44.5 kg
[~2022-05-01 20:05] MED LIST changes: +ANORO ELLIPTA1 EAC1 IH; +DILTIAZEM 24HR240 M5 PO; +ESTRADIOL1 M1 PO
== END 2022-05-01 22:43 | disposition home or self-care (01) ==
LOC: ER 20:05
DX: J95.811 Postprocedural pneumothorax (principal); J90 Pleural effusion, not elsewhere classified; I25.2 Old myocardial infarction; F17.200 Nicotine dependence, unspecified, uncomplicated; Z79.899 Other long term (current) drug therapy
CPT/HCPCS: 93005; 93010; 99283-25

== ENCOUNTER 2022-06-20 16:25 | Inpatient (IN) | payer MEDICARE, OTHER ==
[~2022-06-20] VITALS: Ht 157.5 cm; Wt 46.6 kg
[2022-06-20 18:44] LABS: BASOPHILS ABSOLUTE AUTO 0.16 K/mm3 (0.00-0.23); BASOPHILS PERCENT AUTO 1 % (0-2); EOSINOPHILS PERCENT AUTO 0 % (0-6); Hematocrit 33.6 % (33.0-51.0); Hemoglobin 11.4 g/dL (11.5-16.0); IMMATURE GRAN ABSOLUTE AUTO 0.51 K/mm3 (0.00-0.10); IMMATURE GRAN PERCENT AUTO 3 % (0-1); LYMPHOCYTES ABSOLUTE AUTO 0.59 K/mm3 (0.84-5.20); LYMPHOCYTES PERCENT AUTO 3 % (21-46); MONOCYTES ABSOLUTE AUTO 1.18 K/mm3 (0.16-1.47); MONOCYTES PERCENT AUTO 7 % (4-13); Mean Corpuscular HGB 28.1 pg (26.0-34.0); Mean Corpuscular HGB Conc 33.9 g/dL (31.5-36.5); Mean Corpuscular Volume 83 fL (80-100); Mean Platelet Volume 9.6 fL (9.1-12.4); NEUTROPHILS ABSOLUTE AUTO 14.71 K/mm3 (1.96-9.15); NEUTROPHILS PERCENT AUTO 86 % (41-73); Platelet Count 219 K/mm3 (150-400); RDW Coefficient Variation 15.9 % (11.7-14.2); Red Blood Cell Count 4.05 M/mm3 (3.80-5.20); White Blood Cell Count 17.15 K/mm3 (4.00-11.30)
[2022-06-20 19:04] LABS: Magnesium, Blood 1.3 mg/dL (1.6-2.4)
[2022-06-20 19:14] LABS: Albumin, Blood 3.1 g/dL (3.4-5.0); Bilirubin, Total 0.4 mg/dL (0.1-1.0); Bun/Creatinine Ratio 57.5 (12.0-20.0); Calcium, Blood 11.7 mg/dL (8.5-10.1); Creatinine, Blood 0.4 mg/dL (0.40-1.00); Potassium, Blood 3.4 mmol/L (3.5-5.5); Total Protein, Blood 6.1 g/dL (6.4-8.2)
[2022-06-21 03:21] LABS: Source, Urine Straight Cath
[2022-06-21 03:27] LABS: Bilirubin, Urine Neg (Neg); Blood, Urine 1+ (Neg); Glucose Qualitative, Urine Neg (Neg); Ketones, Urine Neg (Neg); Leukocyte Esterase, Urine Neg (Neg); Nitrite, Urine Neg (Neg); Protein, Urine Neg (Neg); Specific Gravity, Urine 1.015 (1.003-1.022); Urobilinogen, Urine NORM (Normal)
[2022-06-21 03:36] LABS: Appearance, Urine Clear (Clear); Color, Urine Yellow (P-Yellow)
[2022-06-21 03:37] LABS: Bacteria Few /hpf; Red Blood Cells, Urine 0-2 /hpf (0-2); Squamous Epithelial Cells Mod /hpf (Few); White Blood Cells, Urine 0-2 /hpf (0-5)
[2022-06-21 05:52] LABS: Base Excess Venous 14.4 mmol/L; Bicarbonate Venous 35.6 mmol/L (24.0-30.0); PCO2 Venous 75.7 mmHg (38-42); pH Blood Venous 7.34 (7.34-7.37)
[2022-06-21 05:56] LABS: BASOPHILS ABSOLUTE AUTO 0.05 K/mm3 (0.00-0.23); BASOPHILS PERCENT AUTO 0 % (0-2); EOSINOPHILS PERCENT AUTO 0 % (0-6); Hematocrit 30.2 % (33.0-51.0); Hemoglobin 10.1 g/dL (11.5-16.0); IMMATURE GRAN ABSOLUTE AUTO 0.13 K/mm3 (0.00-0.10); IMMATURE GRAN PERCENT AUTO 1 % (0-1); LYMPHOCYTES ABSOLUTE AUTO 0.43 K/mm3 (0.84-5.20); LYMPHOCYTES PERCENT AUTO 4 % (21-46); MONOCYTES PERCENT AUTO 7 % (4-13); Mean Corpuscular HGB 28.2 pg (26.0-34.0); Mean Corpuscular HGB Conc 33.4 g/dL (31.5-36.5); Mean Corpuscular Volume 84 fL (80-100); Mean Platelet Volume 9.7 fL (9.1-12.4); NEUTROPHILS ABSOLUTE AUTO 10.01 K/mm3 (1.96-9.15); NEUTROPHILS PERCENT AUTO 88 % (41-73); Platelet Count 153 K/mm3 (150-400); RDW Coefficient Variation 15.8 % (11.7-14.2); RDW Standard Deviation 48.6 fL (35.1-46.3); Red Blood Cell Count 3.58 M/mm3 (3.80-5.20); White Blood Cell Count 11.42 K/mm3 (4.00-11.30)
[2022-06-21 06:22] LABS: Bun/Creatinine Ratio 43.9 (12.0-20.0); Calcium, Blood 10.1 mg/dL (8.5-10.1); Creatinine, Blood 0.41 mg/dL (0.40-1.00); Potassium, Blood 2.9 mmol/L (3.5-5.5)
--- NOTE | 2022-06-21 06:24 | NUR ---
SHIFT SUMMARY ASSUMED CARE OF PT AT 2350. PT GOES IN AND OUT OF CONSIOUSNESS. PT WILL AWAKE FOR AWHILE BUT THEN FALL INTO A DEEP SLEEP. PT DESATURATED TO 78% AT ONE POINT. RT CALLED AND RESIDENT. LABS ORDERED. PT STILL ON 6L NC, SATURATIONS ABOVE 100%. PT WAS SR AT ARRIVAL BUT AROUND 0430 PT FLIPPED TO AFIB/AFLUTTER A COUPLE TIMES, THEN BACK TO SR. PT C/O NOT BEING ABLE TO URINATE, BLADDER SCAN SHOWED 953 ON SCAN. ORTIZ DRAINED 1500. PT HAS REDNESS ON HER COCCYX, STATED THAT PT HAS BEEN IN A MARIANO FOR ABOUT A YEAR DUE TO WEAKNESS. STATES LAST CHEMO WAS FRIDAY AND SHE HAS BEEN FEELING SICK SINCE. NOW, 0630,IN THE AM, PT IS NON VERBAL AND DIFFICULT TO WAKE. ASKED IF PT WAS OGING TO AND IF HE NEEDED TO CALL THEIR SON. PT PUT ON NON REBREATHER DUE TO DESATURATION TO 75% AGAIN.
--- NOTE | 2022-06-21 09:05 | NUR ---
The pt is awake at this time, and had a little bit of her breakfast with her Berhane's help. She is talking on her phone. Does not appear anxious nor painful. When asked, stated that her pain level is mild, and in her low back. Eggcrate mattress was placed on the bed and extra pillows placed to increase her comfort. She states that it is better after that. She is alert, oriented, flat affect, but cooperative and communicating appropriately. States that she is tired this morning. SpO2 was 87-88% during activity of eating and talking while on 2 l/min of oxygen. Oxygen delivery was increased to 4 l/min and the spo2 improved to 94-95%. The pt states that this is not high enough. Asked why she says this, she said that her spo2 should be at 100%. Pt and family educated regarding goal spo2 and safe administration of oxygen, and VBG results this morning. Verbalized understanding.
--- NOTE | 2022-06-21 10:28 | NUR ---
Pt's SpO2 dropped to 84-86% while she was sleeping on 4 l/min oxygen. Verified correct placement and waveform of SpO2 probe on her right ear. Increased O2 delivery to 5 l/min. And spo2 improved to 96%
--- NOTE | 2022-06-21 11:06 | NUR ---
Istrate here to see the patient. Updated him on pertinent information. Verbal order recd for sodium chloride tablets. Palliative care RN Contreras in room at this time, talking with Berhane.
--- NOTE | 2022-06-21 12:02 | NUR ---
Palliative Care Consult 62 year old female admitted to the hospital for Hyponatremia. 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 Pt resting in bed with her eyes closed upon arrival. Pt's Berhane at bedside. Pt remains with her eyes closed throughout visit. Engaged in therapeutic discussion regarding advanced care planning with Berhane. Berhane reports over the last month Pt has become increasingly weaker requiring assistance with transfers and no longer is ambulatory. Berhane reports assisting Pt in a wheel chair to get from point A to point B. Berhane also reports he and Pt having 3 teenage children at home that assists with care. Continued active listening as Berhane reports Pt has been receiving treatment for her cancer for approximately 4 years. Berhane states Pt does not allow him to accompany her when seeing oncologist. He states Pt has a deep methodist belief that God will cure her. Gentle education on disease process including the meaning of Palliative Treatment. Gentle discussion on the importance of planning for the future as Pt's cancer progresses. Continued therapeutic visit and answered questions. Berhane expresses appreciation and reports no other concerns at this time. Palliative Care will remain available.
--- NOTE | 2022-06-21 13:32 | NUR ---
Pt was sitting up, eating her lunch very slowly. Ate a few bites and said it was the most she had eaten in 5 days. Daughter was also at the bedside briefly this afternoon. Berhane has not been here since at least noon. Assisted pt repositioning slightly in bed, more of an upright and straight sitting position at her request. She is dozing off and on after eating a little bit. Oxygen delivery 4 l/min, spo2 98%.
--- NOTE | 2022-06-21 14:11 | NUR ---
Sleeping, Respirations even and unlabored at 16/minute and spo2 100% on 4 l/min n.c. delivery. She is sitting up in the bed, HOB elevated at 55 degrees. Appears to be comfortable.
--- NOTE | 2022-06-21 16:37 | NUR ---
Pt awakens with conversation, opens her eyes and denies any pain at this time. Appears lethargic, weak and speaks verys softly, minimally. Her SPO2 has been maintained better today with higher elevation of the head of the bed while sleeping. She is presently on 2 l/min of oxygen delivery.
[2022-06-22 05:10] LABS: BASOPHILS ABSOLUTE AUTO 0.05 K/mm3 (0.00-0.23); BASOPHILS PERCENT AUTO 1 % (0-2); EOSINOPHILS PERCENT AUTO 0 % (0-6); Hematocrit 28.8 % (33.0-51.0); Hemoglobin 9.5 g/dL (11.5-16.0); IMMATURE GRAN ABSOLUTE AUTO 0.11 K/mm3 (0.00-0.10); IMMATURE GRAN PERCENT AUTO 1 % (0-1); LYMPHOCYTES PERCENT AUTO 5 % (21-46); MONOCYTES ABSOLUTE AUTO 0.25 K/mm3 (0.16-1.47); MONOCYTES PERCENT AUTO 2 % (4-13); Mean Corpuscular HGB 28.3 pg (26.0-34.0); Mean Corpuscular Volume 86 fL (80-100); Mean Platelet Volume 10.2 fL (9.1-12.4); NEUTROPHILS ABSOLUTE AUTO 9.97 K/mm3 (1.96-9.15); NEUTROPHILS PERCENT AUTO 92 % (41-73); Platelet Count 112 K/mm3 (150-400); RDW Coefficient Variation 16.1 % (11.7-14.2); RDW Standard Deviation 50.6 fL (35.1-46.3); Red Blood Cell Count 3.36 M/mm3 (3.80-5.20); White Blood Cell Count 10.88 K/mm3 (4.00-11.30)
[2022-06-22 05:38] LABS: Albumin, Blood 2.7 g/dL (3.4-5.0); Bilirubin, Total 0.4 mg/dL (0.1-1.0); Bun/Creatinine Ratio 41.6 (12.0-20.0); Calcium, Blood 10.2 mg/dL (8.5-10.1); Creatinine, Blood 0.36 mg/dL (0.40-1.00); Globulin, Blood 2.6 g/dL (2.2-4.0); Magnesium, Blood 1.7 mg/dL (1.6-2.4); Phosphorus, Blood 1.6 mg/dL (2.5-4.9); Potassium, Blood 4.1 mmol/L (3.5-5.5); Thyroid Stimulating Hormone 0.53 uIU/mL (0.360-4.800); Total Protein, Blood 5.3 g/dL (6.4-8.2)
--- NOTE | 2022-06-22 06:19 | NUR ---
SHIFT SUMMARY NO ACUTE CHANGES NOTED THROUGH THE NIGHT. PT HAS BEEN LETHARGIC THROUGH THE MAJORITY OF THE NIGHT BUT WOULD WAKE UP BRIEFLY WITH MUFFLED RESPONSES, OR SHE WOULD BE ABLE TO SPEAK A FEW WORDS AND SIPS OF WATER BEFORE FALLING BACK TO SLEEP. THIS AM AROUND 0400 SHE WOKE UP TO THE DOOR OPENING, VOICED HER NEEDS REGARDING SALINE TO HER LEFT NOSTRIL, DRANK SOME WATER AND SPOKE WITH HER , SHE WAS AWARE THAT HER SON HAD BEEN IN PREVIOUSLY AND ASKED WHERE HE HAD GONE. PT REPOSITIONED Q2 HRS, ORAL CARE PROVIDED. REMAINS AT THE BEDSIDE, VSS, 3L O2 VIA NC, CALL LIGHT IN REACH.
--- NOTE | 2022-06-22 17:21 | NUR ---
SHIFT SUMMARY PT REMAINS ALERT AND ORIENTED THIS SHIFT. PT IS LETHARGIC AT TIMES, BUT WAKES UP AND RESPONDS APPROPRIATELY. VS STABLE. O2 SATS >90% ON 4L NC. BP STABLE. HR NSR TO SINUS TACH. PT COMPLAINED OF PAIN ON AND OFF THROUGHOUT SHIFT TO TAIL BONE. EGG CRATE MATTRESS IN PLACE. PT REPOSITIONED Q2H. PT MEDICATED NEEDED FOR PAIN. ORTIZ PATENT AND DRAINING CLEAR YELLOW URINE. FAMILY AT BEDSIDE ALL SHIFT. WILL CONTINUE TO MONITOR AND REPORT TO ONCOMING RN
[2022-06-23 04:55] LABS: BASOPHILS ABSOLUTE AUTO 0.03 K/mm3 (0.00-0.23); BASOPHILS PERCENT AUTO 0 % (0-2); EOSINOPHILS PERCENT AUTO 0 % (0-6); Hematocrit 26.9 % (33.0-51.0); Hemoglobin 8.7 g/dL (11.5-16.0); IMMATURE GRAN ABSOLUTE AUTO 0.06 K/mm3 (0.00-0.10); IMMATURE GRAN PERCENT AUTO 1 % (0-1); LYMPHOCYTES ABSOLUTE AUTO 0.38 K/mm3 (0.84-5.20); LYMPHOCYTES PERCENT AUTO 4 % (21-46); MONOCYTES ABSOLUTE AUTO 0.09 K/mm3 (0.16-1.47); MONOCYTES PERCENT AUTO 1 % (4-13); Mean Corpuscular HGB 28.9 pg (26.0-34.0); Mean Corpuscular HGB Conc 32.3 g/dL (31.5-36.5); Mean Corpuscular Volume 89 fL (80-100); Mean Platelet Volume 11.2 fL (9.1-12.4); NEUTROPHILS ABSOLUTE AUTO 8.12 K/mm3 (1.96-9.15); NEUTROPHILS PERCENT AUTO 94 % (41-73); Platelet Count 71 K/mm3 (150-400); RDW Coefficient Variation 16.5 % (11.7-14.2); RDW Standard Deviation 53.5 fL (35.1-46.3); Red Blood Cell Count 3.01 M/mm3 (3.80-5.20); White Blood Cell Count 8.68 K/mm3 (4.00-11.30)
[2022-06-23 05:19] LABS: Bun/Creatinine Ratio 34.5 (12.0-20.0); Calcium, Blood 10.1 mg/dL (8.5-10.1); Creatinine, Blood 0.35 mg/dL (0.40-1.00)
--- NOTE | 2022-06-23 05:28 | NUR ---
SHIFT SUMMARY NO ACUTE CHANGES NOTED THROUGH THE NIGHT, PT HAS BEEN ABLE TO WAKE UP WITH VERBAL CUES BUT REMAINS VERY TIRED/LETHARGIC. LUNG SOUNDS DIMINISHED THROUGHOUT, COUGH EFFORT IS VERY WEAK, PT ENC TO CLEAR AIRWAY OFTEN, MEDS CRUSHED AND PLACED IN WATER/PUDDING IF APPLICABLE, VSS. PT'S @ THE BEDSIDE MOST OF THE NIGHT. Q2 TURNS PROVIDED. CALL LIGHT IN REACH, WCTM
--- NOTE | 2022-06-23 16:44 | NUR ---
UPDATE PT COMPLAINS OF FEELING SHORT OF BREATH AND INCREASED WORK OF BREATHING. O2 SATS DOWN IN THE MID 80'S AT REST. 02 INCREASED TO 5L NC TO BRING SATS TO 90%. PT MORE LETHARGIC THAN THIS AM. BLE COLD TO THE TOUCH AND MOTTLING NOTED. DR. CODY CALLED AND UPDATED. NEW ORDERS FOR CHEST XR AND BIPAP. THIS RN HAD LONG CONVERSATION WITH FAMILY ABOUT CODE STATUS. FAMILY WISHES TO CHANGE CODE STATUS TO LIMITED CODE AND ONLY PROVIDE INTUBATION, DEFIBRILATION AND MEDICATIONS. THEY DO NOT WANT CPR. RESPIRATORY THERAPY CALLED TO SET UP BIPAP. WILL CONTINUE TO MONITOR CLOSELY
--- NOTE | 2022-06-23 16:46 | NUR ---
Pt more frail today in her abilty to ventilate. She is still very hypervigilant. She is deeply concerned about improving and getting more treatment. Family is showing great strain. Pt has historically been secrative and not wanting to share information. Review of labs, diagnostics and vitals. Nursing reports that there was some talk with pt about a pleurex. Nursing was able to get her to take some pain medications. We reivewed case and nursing contacted hospitalist for chest xray and return to telemetry. physican requested comfort medication for pt burden of ventialtion. With review judicous doasing and frequncy ordered. Will speak with [facility] tomorrow to help with plan of care. hope with ome imporvents I can speak with her about her code status. will have chaplian speak to and her children for support.
--- NOTE | 2022-06-23 17:42 | NUR ---
UPDATE PT TOLERATING M SERIES BIPAP WITH 10/5 AND 7L BLEED IN. SATS >90%. PT RESTING COMFORTABLY AT THIS TIME AND DENIES ANY PAIN. FAMILY AT BEDSIDE. WILL CONTINUE TO MONITOR AND REPORT TO ONCOMING RN
--- NOTE | 2022-06-24 01:27 | NUR ---
BED WORKER SUMMARY PT'S O2 SATS WERE >97% ON 4L NC SO PT WAS TURNED DOWN TO 3L NC. PT THEN REPOSITIONED AND O2 SATS REMAINED >90%. APPROX 5 MIN LATER THE PT RAPIDLY DROPPED TO 80% SPO2 REQUIRING THE BIPAP W 12L BLEED IN TO RECOVER. PT REMAINED ON BIPAP FOR APPROX ONE HOUR BEFORE REQUESTING TO HAVE IT OFF SO SHE WAS PLACED ON HI-FLOW NC AND WAS TITRATED BACK TO 4L NC W O2 SATS >97%. PT'S AT THE BEDSIDE AND VERY UPSET OVER THE INCIDENT OF THE PT DESATTING REPEATEDLY ASKING WHY SHE WAS TURNED DOWN TO 3L IN THE FIRST PLACE. THIS RN EDUCATED THE PT'S ON WHY WE TITRATE O2 DOWN DEPENDING ON THE O2 SATS. PT VERBALIZED AN UNDERSTANDING BUT REMAINS VERY UPSET. PT CURRENTLY LYING IN BED W 4L NC AND O2 SATS >96%, SWITCH FOREMAN NOTIFIED OF CHANGE. RT DAKSHA AT BEDSIDE DURING EVENT.
[2022-06-24 04:18] LABS: BASOPHILS ABSOLUTE AUTO 0.04 K/mm3 (0.00-0.23); BASOPHILS PERCENT AUTO 1 % (0-2); EOSINOPHILS PERCENT AUTO 0 % (0-6); Hematocrit 27.6 % (33.0-51.0); Hemoglobin 8.7 g/dL (11.5-16.0); IMMATURE GRAN ABSOLUTE AUTO 0.07 K/mm3 (0.00-0.10); IMMATURE GRAN PERCENT AUTO 1 % (0-1); LYMPHOCYTES ABSOLUTE AUTO 0.36 K/mm3 (0.84-5.20); LYMPHOCYTES PERCENT AUTO 7 % (21-46); MONOCYTES ABSOLUTE AUTO 0.13 K/mm3 (0.16-1.47); MONOCYTES PERCENT AUTO 3 % (4-13); Mean Corpuscular HGB 28.6 pg (26.0-34.0); Mean Corpuscular HGB Conc 31.5 g/dL (31.5-36.5); Mean Corpuscular Volume 91 fL (80-100); NEUTROPHILS ABSOLUTE AUTO 4.66 K/mm3 (1.96-9.15); NEUTROPHILS PERCENT AUTO 89 % (41-73); Platelet Count 58 K/mm3 (150-400); RDW Coefficient Variation 16.5 % (11.7-14.2); RDW Standard Deviation 54.2 fL (35.1-46.3); Red Blood Cell Count 3.04 M/mm3 (3.80-5.20); White Blood Cell Count 5.26 K/mm3 (4.00-11.30)
[2022-06-24 04:39] LABS: Bun/Creatinine Ratio 52.6 (12.0-20.0); Calcium, Blood 10.7 mg/dL (8.5-10.1); Creatinine, Blood 0.29 mg/dL (0.40-1.00); Magnesium, Blood 1.6 mg/dL (1.6-2.4); Phosphorus, Blood 2.2 mg/dL (2.5-4.9); Potassium, Blood 3.7 mmol/L (3.5-5.5)
--- NOTE | 2022-06-24 06:13 | NUR ---
RESIDENTIAL MANAGER SUMMARY PT IS ORIENTED BUT EXTREMELY LETHARGIC BARELY ABLE TO VOICE ONE OR TWO WORD ANSWERS WHEN ASKED QUESTIONS. O2 SATS >90% ON 4-7L NC EXCEPT FOR ONE EPISODE WHERE SHE DESATTED DOWN TO 80% NEEDING THE BIPAP W 10L BLEED IN, SEE PREVIOUS NOTE. BP SLIGHTLY ELEVATED THIS AM W SBP IN THE 150'S. TELE SHOWING ST IN THE 110'S THIS SHIFT. PT REPORTED BACK PAIN AT THE START OF THE SHIFT AND WAS GIVEN ROXANOL WHICH HELPED HER PAIN WELL HER AIR HUNGER. NS RUNNING AT 50ML/HR INTO [employer]. ORTIZ PATENT AND DRAINING CLEAR/YELLOW URINE THIS SHIFT. PT REPOSITIONED TOLERATED BUT PT WOULD DESAT RAPIDLY W ANY EXERTION. PT'S AT BEDSIDE ALL NIGHT SEEMINGLY VERY DISTRAUGHT AT HIS WIFES CONDITION AND LACK OF IMPROVEMENT, PT'S EDUCATED ON THE TREATMENT PLAN BUT HE REMAINED VERY EMOTIONALLY DISTRAUGHT NOT WANTING TO DISCUSS IT FURTHER. PT CURRENTLY ON 5L NC W O2 SATS >92%. WILL REPORT TO ONCOMING RN.
--- NOTE | 2022-06-24 09:05 | NUR ---
Update on current status provided to Noemy Leyva at [facility] with request for provider to meet with pt today. Noemy Leyva to round on pt here in PCU 10 at 11 am. Pt's RN notified so pt could invite family members to attend.
--- NOTE | 2022-06-24 11:00 | NUR ---
UPDATE PT LETHARGIC TODAY AND ONLY OPENING HER EYES WITH MINIMAL VERBAL RESPONSE. VS STABLE. O2 SATS >90% ON 5L NC. HR SINUS TACH 110'S. MARVIN MAZARIEGOS IN FROM ONCOLOGY OFFICE TO MEET WITH PT AND FAMILY. AFTER MEETING NEW ORDERS PLACED FOR COMFORT CARE. DIDIER FROM PALLIATIVE CARE TO CALL DR. PALENCIA WITH THE UPDATE. WILL CONTINUE TO PROVIDE COMFORT MEASURES. MULTIPLE FAMILY MEMBERS AT BEDSIDE.
--- NOTE | 2022-06-24 15:55 | NUR ---
Spiritual care visit conducted. I visit with pt's children in the ICU waiting rm. Family is very tearful and emotional. They voice the concerns they have around their mother's and their spiritual distress (which is complecated by their mother's statements about being healed by God sometime ago). I listening empathically, reinforce helpful attitudes and perspectives and provide theological insights, gentle outreach counselor and prayer. Family all show signs of being comforted and encouraged. Spiritual care will continue to remain available to patient and family.
--- NOTE | 2022-06-24 17:00 | NUR ---
UPDATE FAMILY CALLED STAFF TO BEDSIDE DUE TO PT NO LONGER BREATHING. TWO RN'S AT BEDSIDE LISTENED FOR HEART TONES AND THEY WERE ABSENT. TIME OF 165. PALLIATIVE CARE CALLED AND DIDIER AT BEDSIDE WITH FAMILY. DR. PALENCIA NOTIFIED.
--- NOTE | 2022-06-24 19:17 | NUR ---
pt transitioned to comfort and , assisted family with funneral plans.
== END 2022-06-24 19:52 | DRG 640 ==
LOC: ER 16:25 → PCU 22:23
PROVIDERS: Family Medicine; Physician Assistant; ADMIT Internal Medicine
DX: E87.1 Hypo-osmolality and hyponatremia (principal); E43 Unspecified severe protein-calorie malnutrition; G92.8 Other toxic encephalopathy; J96.01 Acute respiratory failure with hypoxia; C34.31 Malignant neoplasm of lower lobe, right bronchus or lung; Z68.1 Body mass index [BMI] 19.9 or less, adult; C77.9 Secondary and unspecified malignant neoplasm of lymph node, unspecified; R64 Cachexia; E87.6 Hypokalemia; E83.42 Hypomagnesemia; E83.39 Other disorders of phosphorus metabolism; E86.0 Dehydration; D72.829 Elevated white blood cell count, unspecified; E88.09 Other disorders of plasma-protein metabolism, not elsewhere classified; E87.8 Other disorders of electrolyte and fluid balance, not elsewhere classified; Z92.21 Personal history of antineoplastic chemotherapy; Z51.5 Encounter for palliative care; Z79.899 Other long term (current) drug therapy; Z79.01 Long term (current) use of anticoagulants; Z86.61 Personal history of infections of the central nervous system; I25.2 Old myocardial infarction; Z86.73 Personal history of transient ischemic attack (TIA), and cerebral infarction without residual deficits; Z98.890 Other specified postprocedural states; Z90.710 Acquired absence of both cervix and uterus; Z90.721 Acquired absence of ovaries, unilateral; Z87.01 Personal history of pneumonia (recurrent); Z86.19 Personal history of other infectious and parasitic diseases; Z90.49 Acquired absence of other specified parts of digestive tract; Z79.51 Long term (current) use of inhaled steroids; Z87.891 Personal history of nicotine dependence; Z85.72 Personal history of non-Hodgkin lymphomas
CPT/HCPCS: 51702; 71045; 80048; 80053; 81001; 82803; 82947; 83735; 84100; 84145; 84295; 84443; 85025; 87040; 94660; 94760; 96365; 96375; 97162; 97530; 99285-25; A9270; J1650; J1940; J3010; J3475; J3480; J7030; J7060